=== PATIENT | male | born 1965 | race Caucasian/White ===

== ENCOUNTER 2023-01-21 08:55 | Emergency (ER) | payer OTHER, MEDICAID, SELFPAY ==
[2023-01-21 08:57] VITALS: BP 158/96; PULSE 86; RESP 18; TEMP 36.3; O2SAT 98; BMI 43.9
--- NOTE | 2023-01-21 09:34 | EX.ED.GENINJ ---
HPI History of Present Illness Chief Complaint: Other, Pain/Inj Informant: patient Onset/Context/Timing Onset: Weeks (2) Location of pain/injuries: Right shoulder Quality of Pain: Aching and Stabbing Location: Neck and right shoulder Worsened by: Nothing Relieved by: Elevating right arm Associated Symptoms Associated Symptoms: Positive for Parasthesias; Negative for Weakness, Loss of function, Inability to ambulate, Loss of consciousness or Amnesia Narrative Narrative: Patient presents with neck and right shoulder pain that has been getting worse over the past 2 weeks. Patient states it came on gradually. Patient describes as aching and stabbing. Patient states it is over the lower cervical paraspinal area and radiates into the right shoulder. Patient states it is better when he is able to abduct and elevate his right arm. Patient admits to some slight decrease in sensation in his right arm but denies any weakness. Patient denies any trauma or injury. [facility] Medical History (Updated 01/21/23 @ 11:[address] Bart Crawford DO) Contact with or exposure to other viral diseases COVID-19 URI (upper respiratory infection) Home Medications dexamethasone 6 mg tablet 6 mg PO DAILY #5 tabs 12/11/22 [Rx Last Taken Unknown] cyclobenzaprine 10 mg tablet 10 mg PO QHS PRN PRN Muscle Spasm #10 TABLETS 01/21/23 [Rx Last Taken Unknown] hydrocodone-acetaminophen 5-325mg 5mg-325mg 1 tab PO Q6H PRN PRN Pain 3 days #10 TABLETS 01/21/23 [Rx Last Taken Unknown] Allergy/AdvReac Type Severity Reaction Status Date / Time cephalexin [From Keflex] Allergy Intermediate sob Verified 01/21/23 08:57 Surgical History (Updated 01/21/23 @ 09:[address] Bart Crawford DO) History of colon resection Hx of arthroscopy of knee Hx of tonsillectomy Social History (Updated 01/21/23 @ 09:[address] Bart Crawford DO) alcohol intake: current alcohol intake frequency: holidays/special occasions only ROS ROS ED Constitutional Constitutional ED: Denies chills or fever(s) Eyes Eyes: Denies blurry vision or change in vision ENT ENT ED: Denies rhinorrhea or sore throat Cardiovascular Cardiovascular: Denies chest pain or palpitations Respiratory/Chest Respiratory/Chest: Denies cough or dyspnea Gastrointestinal Gastrointestinal: Denies nausea or vomiting Genitourinary Genitourinary ED: Denies dysuria or hematuria Musculoskeletal Musculoskeletal: Reports neck pain; Denies back pain Integumentary Denies abscess or rash Neurologic Neurologic: Denies headache(s) or weakness Allergic/Immunologic Allergic/Immunologic ED: Denies mouth swelling or urticaria EXAM Physical Exam Const Vital Signs: 01/21/23 08:57 Temperature 97.3 F L Temperature Source Temporal Pulse Rate 86 Respiratory Rate 18 Blood Pressure 158/96 H Blood Pressure Mean 116 Pulse Ox 98 Oxygen Delivery Method Room Air Positive well nourished, well developed and obese General Appearance ED: well developed and NAD Nutritional Appearance: obese HEENT atraumatic Neck Neck Narrative: There is tenderness over the lower right cervical paraspinal muscles. There is some mild midline tenderness over the lower cervical spine. There is no bony crepitance or step-off. There is no edema or ecchymosis. Range of motion was limited in all motions of the cervical spine secondary to pain. Strength is 5/5 bilaterally in the upper extremities. There are no sensory deficits noted. Radial pulses are equal bilaterally. Resp normal respiratory effort and clear to auscultation bilaterally Cardio regular rhythm Rate: regular rate GI non-tender and non-distended Palpation: soft Extremity normal to inspection and full ROM Neuro oriented x3, CN's II-XII intact bilaterally, moves all extremities, no focal motor deficits and no sensory deficits noted Josefa Coma Scale: document GCS findings Spontaneous Obeys Commands Oriented 15 Sensorium / Orientation: alert Motor Exam: strength 5/5 throughout Psych mental status grossly normal MDM MDM MDM Narrative Medical decision making narrative: Differential diagnose includes cervical strain, cervical radiculopathy, and spondylolisthesis. CT scan of the cervical spine will be obtained to assess for spondylolisthesis and spinal stenosis. Radiography Diagnostic Testing: Clinical Impression(s) from Imaging Studies Cervical Spine CT 01/21/23 09:59 IMPRESSION: 1. No evidence of acute cervical spinal fracture or spondylolisthesis or 2. Straightening of the cervical spine which could be due to muscle spasm. 3. Degenerative changes particularly at the level of C3-C4.. Electronically Signed: Damian Quinones MD at 10:55 EST , CT scan of the cervical spine was obtained. There is no acute fracture or spondylolisthesis. There is straightening of the cervical spine. There are some degenerative changes especially at the level of C3-C4. This was interpreted by the radiologist and was also independently reviewed by myself. Treatment and Re-Evaluation Narrative: Patient was advised of his findings. Patient was given prescription for a short course of [place]. Patient was also given a prescription for a short course of Flexeril. Patient was instructed to use ice to the area. Patient was instructed to follow-up with his primary care physician. Patient was advised that he may need further testing for cervical radiculopathy as an outpatient. Patient understood and was agreeable with this plan. All questions were answered. Discharge Plan Triage Chief Complaint: Other, Pain/Inj ED Provider: Bart Crawford Dx/Rx/DC Orders Clinical Impression: Acute cervical myofascial strain Instructions: ED Neck Sprain or Strain Prescriptions: New cyclobenzaprine [cyclobenzaprine] 10 mg tablet 10 mg PO QHS PRN PRN (Reason: Muscle Spasm) Qty: 10 0RF hydrocodone-acetaminophen [hydrocodone-acetaminophen] 5-325 mg tablet 1 tab PO Q6H PRN PRN (Reason: Pain) 3 Days Qty: 10 0RF No Action dexamethasone 6 mg tablet 6 mg PO DAILY Qty: 5 0RF Primary Care Provider: Lb Mcleod Referrals: Lb Mcleod MD [Primary Care Provider] - 5-7 Days NOT,DEFINED [Non-Staff] - Disposition Disposition: Home, Self Care
--- NOTE | 2023-01-21 09:59 | CT_ITS ---
INDICATION: Injury/Pain EXAMINATION: CT CERVICAL SPINE - CT Spine Cervical W/O Contrast Injection TECHNIQUE: Helically acquired images were obtained of the cervical spine. 2D reformatted images were reviewed. A radiation dose optimization technique was used for this scan. IV Contrast dosage and agent: None. RADIATION DOSAGE (If Supplied By Facility): CTDIvol = ( 39.41 ) mGy, DLP = ( 1006.44 ) mGycm COMPARISON: No relevant prior comparison study available FINDINGS: VERTEBRAE: No fracture or traumatic subluxation. No discrete lytic or blastic abnormality. Straightening of the cervical spine. Normal craniocervical junction and cervicothoracic junction. DISCS and SPINAL CANAL: Narrowing of C3-C4 disc space. Posterior degenerative spur slightly more to the left side with narrowing of the central neural foramina. Otherwise no critical stenosis is seen. Endplate spondylosis at multiple levels. NECK SOFT TISSUES: No prevertebral soft tissue swelling. There is no cervical adenopathy. LUNG APICES: Clear. CT/Spine Cervical without Contras IMPRESSION: 1. No evidence of acute cervical spinal fracture or spondylolisthesis or 2. Straightening of the cervical spine which could be due to muscle spasm. 3. Degenerative changes particularly at the level of C3-C4.. Electronically Signed: Damian Quinones MD at 10:55 [facility] ,
[2023-01-21 11:14] VITALS: BP 139/82; PULSE 91; RESP 16; O2SAT 98
== END 2023-01-21 11:15 | disposition home or self-care (01) ==
PROVIDERS: Emergency Provider Emergency Medicine; PCP Family Medicine; Visit Provider Emergency Medicine
DX: S16.1XXA Strain of muscle, fascia and tendon at neck level, initial encounter (principal); M25.511 Pain in right shoulder
CPT/HCPCS: 72125; 99282

== ENCOUNTER → 2023-02-20 | Outpatient (CLI) | payer OTHER, MEDICAID, SELFPAY ==
[2023-02-20 17:46] LABS: Absolute Lymphocyte Count 3.24 X10^3/uL (0.83-4.51); Absolute Neutrophil Count 5.7 X10^3/uL (2.0-7.7); Basophil# 0.04 X10^3/uL; Basophil% 0.4 % (0-1); Eosinophils% 2.9 % (0-5); Hematocrit 43.7 % (40-54); Hemoglobin 14.7 g/dL (13.0-16.5); Lymphocyte # 3.24 X10^3/ul (0.83-4.51); Lymphocyte % 31.5 % (19-41); Mean Corp Hgb Conc 33.6 g/dL (32-36); Mean Corpuscular Hgb 28.8 pg (27.0-32.0); Mean Corpuscular Volume 85.5 fL (80-94); Mean Platelet Vol. 9.4 fl (6.2-12.0); Monocyte# 1.04 X10^3/uL; Monocyte% 10.1 % (0-10); NRBC Flagged by Analyzer 0 % (0-5); Neutrophil # 5.65 X10^3/uL (2.7-7.7); Neutrophil % 54.9 % (47-70); Platelet Count 324 K/mm3 (150-450); RBC Distribution Width CV 12.4 % (11.6-14.6); RBC Distribution Width SD 38.7 fl (35.1-43.9); Red Blood Count 5.11 M/mm3 (4.6-6.2); White Blood Count 10.3 K/mm3 (4.4-11.0)
[2023-02-20 18:22] LABS: AST(SGOT) 17 U/L (15-37); Alanine Aminotransfer ALT/SGPT 32 U/L (16-61); Albumin, Serum 3.6 g/dL (3.2-5.0); Alkaline Phosphatase 72 U/L (45-117); Anion Gap 3 (5-15); BUN 14 mg/dL (7-18); BUN/Creat Ratio 19.1 RATIO (10-20); Calcium,Total 9.6 mg/dL (8.5-10.1); Chloride 106 mmol/L (98-107); Cholesterol 190 mg/dL (200); Creatinine, Serum 0.73 mg/dL (0.70-1.30); EST Glomerular Filtration Rate 118 mL/min (>60); Est Glom Filt Rate - Afr Amer 143 mL/min (>60); Globulin 3.7 g/dL (2.2-4.2); Glucose 124 mg/dL (74-106); High Density Lipoprotein 36 mg/dL; Magnesium 2.1 mg/dL (1.6-2.6); Potassium 3.7 mmol/L (3.5-5.1); Protein, Total 7.3 g/dL (6.4-8.2); Sodium Level 138 mmol/L (136-145); Thyroid Stim Hormone (TSH) 1.55 uIU/mL (0.358-3.74); Triglycerides 251 mg/dL; Very Low Density Lipoprotein 50 mg/dL (5-40)
[2023-02-21 12:49] LABS: Hemoglobin A1c 5.6 % (3.8-5.6)
== END | disposition home or self-care (01) ==
LOC: MFPLAB 16:50
PROVIDERS: PCP Family Medicine; Visit Provider Family Medicine
DX: R03.0 Elevated blood-pressure reading, without diagnosis of hypertension (principal)
CPT/HCPCS: 36415; 80053; 80061; 83036; 83735; 84443; 85025

== ENCOUNTER 2023-02-27 20:29 | Emergency (ER) | payer OTHER, MEDICAID, SELFPAY ==
[2023-02-27 20:30] VITALS: BP 149/106; PULSE 108; RESP 17; TEMP 36.4; O2SAT 99; BMI 46.5
--- NOTE | 2023-02-27 22:41 | EX.ED.VIS.EY ---
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 He has watering. Notes significant vision changes but he is not currently wearing his glasses. Does not wear contacts. He states he was using eye protection but states he had been wearing it such that his eyes probably got exposed to the welding flash at times. The left eye was worse than the right but now they are both significant. PFSH PFS Medical History Contact with or exposure to other viral diseases COVID-19 URI (upper respiratory infection) Home Medications dexamethasone 6 mg tablet 6 mg PO DAILY #5 tabs 12/11/22 [Rx Last Taken Unknown] cyclobenzaprine 10 mg tablet 10 mg PO QHS PRN PRN Muscle Spasm #10 TABLETS 01/21/23 [Rx Last Taken Unknown] hydrocodone-acetaminophen 5-325mg 5mg-325mg 1 tab PO Q6H PRN PRN Pain 3 days #10 TABLETS 01/21/23 [Rx Last Taken Unknown] Allergy/AdvReac Type Severity Reaction Status Date / Time cephalexin [From Keflex] Allergy Intermediate sob Verified 01/21/23 08:57 acetaminophen [From Percocet] Allergy Mild Hives Verified 02/27/23 20:30 oxycodone [From Percocet] Allergy Mild Hives Verified 02/27/23 20:30 Surgical History History of colon resection Hx of arthroscopy of knee Hx of tonsillectomy Social History Smoking Status: Current every day smoker tobacco type: cigarettes alcohol intake: current alcohol intake frequency: holidays/special occasions only ROS ROS ED Constitutional Constitutional ED: Denies chills or fever(s) Eyes Eyes: Reports as per HPI and eye pain ENT ENT ED: Denies ear pain, rhinorrhea or sore throat Neurologic Neurologic: Denies headache(s), paresthesias or weakness EXAM Physical Exam Const Vital Signs: 02/27/23 20:30 Temperature 97.6 F L Temperature Source Temporal Pulse Rate 108 H Respiratory Rate 17 Blood Pressure 149/106 H Blood Pressure Mean 120 Pulse Ox 99 Oxygen Delivery Method Room Air Positive well nourished and well developed General Appearance ED: well developed and NAD HEENT atraumatic; Negative for tenderness Mouth ED: Yes oral and palatal mucosa normal and Yes lips normal Mouth: oral and palatal mucosa normal and lips normal Eyes PERRL and EOMs intact bilaterally Eyes Narrative: Lateral mild bulbar conjunctival injection. No chemosis or palpebral involvement. Watering but no discharge or bleeding. Corneas grossly look unremarkable. No slit-lamp exam was performed. Neuro oriented x3, CN's II-XII intact bilaterally and gait normal Sensorium / Orientation: alert Skin Lesions: no lesions Rashes: no rashes MDM MDM MDM Narrative Medical decision making narrative: We will give visual acuities and give him some tetracaine for pain tonight as well as antibiotic ointment to use at home to help soothe his eyes, not for the antibiotic effect. I skipped the slit-lamp exam tonight because he has only had the symptoms for couple of hours and vision is basically unchanged when he is wearing his glasses, and he does not wear contacts to put him at risk for an ulcer. Advise either returning or following up with ophthalmology if it does not improve within 3 days. He is comfortable with that plan. Discharge Plan Triage Chief Complaint: Eye Problem ED Provider: David Reeves Dx/Rx/DC Orders Clinical Impression: UV keratitis Instructions: ED Flash Burn to Eye Prescriptions: No Action dexamethasone 6 mg tablet 6 mg PO DAILY Qty: 5 0RF cyclobenzaprine [cyclobenzaprine] 10 mg tablet 10 mg PO QHS PRN PRN (Reason: Muscle Spasm) Qty: 10 0RF hydrocodone-acetaminophen 5-325 mg tablet 1 tab PO Q6H PRN PRN (Reason: Pain) 3 Days Qty: 10 0RF Primary Care Provider: Lb Mcleod Referrals: Lb Mcleod MD [Primary Care Provider] - Tamara Castro MD [Med Staff - Active Staff] - 3-5 Days if not improving Activity Restrictions/Additional Instructions: Can place thin ribbon of antibiotic ointment to affected eye(s) as needed 3 times per day for discomfort Disposition Disposition: Home, Self Care
[2023-02-27] MEDS: Erythromycin Base 1 OPTH.TUBE 1 APPLIC EACH EYE (22:53)
[2023-02-27] MEDS: Tetracaine 0.5% Ophthalmic Bottle 2 DRP EACH EYE (22:53)
--- OUTSIDE RECORDS SUMMARY | 2023-02-27 22:53 | XMS RPT_ITS | CCD ---
Author Name Unknown Address [address] [place] [address] Organization [facility] Care Team Providers Care Ic Designer [employer] Name Role Phone Unavailable Primary Care Provider DR KERRI Martinez DO Primary Care Physician Unavailable Primary Care Provider Andre Martinez MD Primary Care Provider ANDRE HINOJOSA Primary Care Unavailable Allergies Allergy Classification Reported Allergen(s) Allergy Type Date of Onset Reaction(s) Facility (2 sources) Acetaminophen / oxyCODONE; Translations: [acetaminophen-oxy codone] Drug Allergy 3 [facility] (2 sources) Cephalexin; Translations: [cephalexin] Drug Allergy 3 Eruption of skin (disorder), Other: See [facility] (1 source) oxyCODONE; Translations: [oxycodone] Drug Allergy [facility] Medications Current Medications Medication Drug Class(es) Dates Sig (Normalized) Sig (Original) amoxicillin 875 mg / clavulanate 125 mg oral tablet (1 source) Penicillin-class Antibacterial Start: 04-06-2022 End: 04-13-2022 take 1 tablet by mouth twice daily amoxicillin-clav ulanic acid (AUGMENTIN) 875-125 mg per tablet Indications: Bacterial sinusitis Take 1 tablet by mouth twice daily for 7 days. 14 tablet 0 04/06/2022 04/13/2022 Active Completed/Discontinued Medications Medication Drug Class(es) Dates Sig (Normalized) Sig (Original) cetirizine hydrochloride 10 mg oral tablet (1 source) Histamine-1 Receptor Antagonist Start: 09-24-2018 cetirizine (ZYRTEC) 10 mg tablet Take by mouth. 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 Episodic Intestinal obstruction without hernia (1 source) Small bowel obstruction 05-03-2021 Episodic Other connective tissue disease (1 source) Muscle pain; Translations: [Myalgia, other site] Onset: 08-20-2021 Episodic Other upper respiratory infections (1 source) Bacterial sinusitis; Translations: [Chronic sinusitis, unspecified] Chronic Spondylosis; intervertebral disc disorders; other back problems (1 source) Sciatica; Translations: [Sciatica, unspecified side] Onset: 08-20-2021 Episodic Results Test Name Value Interpretation Reference Range Facil ity Vital Signs Date Time Vital Sign Value Performing Clinician Facility 04-06-2022 07:36-0500 Body temperature 98.29 [degF] Sedrick Michel APRN.SENIOR QA AUTOMATION ENGINEER Work Phone: [facility] 04-06-2022 07:36-0500 Body weight 144.7 kg Sedrick Michel APRN.SENIOR QA AUTOMATION ENGINEER Work Phone: [facility] 04-06-2022 07:36-0500 Diastolic blood pressure 84 mm[Hg] Sedrick Michel APRN.SENIOR QA AUTOMATION ENGINEER Work Phone: [facility] 04-06-2022 07:36-0500 Heart rate 80 /min Sedrick Michel APRN.SENIOR QA AUTOMATION ENGINEER Work Phone: [facility] 04-06-2022 07:36-0500 Respiratory rate 18 /min Sedrick Michel APRN.SENIOR QA AUTOMATION ENGINEER Work Phone: [facility] 04-06-2022 07:36-0500 SaO2% (BldA) [Mass fraction] 98 % Sedrick Michel APRN.SENIOR QA AUTOMATION ENGINEER Work Phone: [facility] 04-06-2022 07:36-0500 Systolic blood pressure 146 mm[Hg] Sedrick Micehl APRN.SENIOR QA AUTOMATION ENGINEER Work Phone: [facility] 08-20-2021 04:05-0400 Body temperature 97.34 [degF] AUSTIN REICHFIELD DO [facility] 08-20-2021 04:05-0400 Diastolic blood pressure 94 mm[Hg] AUSTIN REICHFIELD DO [facility] 08-20-2021 04:05-0400 Heart rate 72 /min [facility] 08-20-2021 04:05-0400 Respiratory rate 18 /min [facility] 08-20-2021 04:05-0400 Systolic blood pressure 155 mm[Hg] AUSTIN REICHFIELD DO [facility] Encounters Encounter Date Encounter Type Care Provider Facility Start: 04-06-2022 End: 04-06-2022 ambulatory ANDRE HINOJOSA Facility:[facility] Start: 04-06-2022 End: 04-06-2022 Patient encounter procedure Sedrick Michel ALEXANDRU.SENIOR QA AUTOMATION ENGINEER Work Phone: [facility] Procedures Date Procedure Procedure Detail Performing Clinician Start: 05-23-2021 Antibody screen Plan of Treatment Date Care Activity Detail Author Start: 12-25-2025 LIPID SCREEN LIPID SCREEN [facility] Start: 05-25-2024 DIABETES SCREEN DIABETES SCREEN [facility] Start: 02-19-2022 DEPRESSION ASSESSMENT DEPRESSION ASS ESSMENT [facility] Start: 10-20-2021 Influenza vaccination INFLUENZA (#1) [facility] Start: 01-14-2021 COVID-19 VACCINE (3 - Booster for Pfizer series) COVID-19 VACCINE (3 - Booster for Pfizer series) [facility] Start: 12-06-2017 SHINGRIX VACCINE (1 of 2) SHINGRIX V ACCINE (1 of 2) [facility] Start: 12-06-2012 COLOGUARD (FIT-DNA) COLOGUARD (FIT-D NA) [facility] Start: 12-06-2012 Colonoscopy COLONOSCOPY [facility] Start: 12-06-2012 COLORECTAL CANCER SCREENING COLORECTAL CANCER SCREENING [facility] Start: 12-06-[address] COLONOGRAPHY [facility] Start: 12-06-2012 FECAL OCCULT BLOOD FECAL OCCULT BLOO D [facility] Start: 12-06-2012 SIGMOIDOSCOPY SIGMOIDOSCOPY [facility] Start: 12-06-1986 Urine microalbumin profile DTAP,TDAP ,TD (1 - Tdap) [facility] Start: 12-06-1985 HEPATITIS C SCREENING HEPATITIS C SC REENING [facility] Start: 12-06-1985 HIV SCREENING HIV SCREENING [facility] Start: [birth year]-06-1968 COVID-19 VACCINE (#1) COVID-19 VACCI NE (#1) [facility] Start: 1965 HEPATITIS B (1 of 3 - 3-dose series) HEPATITIS B (1 of 3 - 3-dose series) [facility] Immunizations Immunization Date Immunization Notes Care Provider Karin stubbs 05-22-2020 tetanus toxoid, redu saad diphtheria toxoid, and acellular pertussis vaccine, adsorbed [facility] 01-13-2019 tetanus toxoid, redu saad diphtheria toxoid, and acellular pertussis vaccine, adsorbed [facility] Payers Date Payer Category Payer Medicaid [id number] 2022 Medicaid [id number] 2022 Unknown MMO MMO [employer] [id number] 2022-Present [phone] [address] [place] [address] PPO [id number] 2022 Unknown [id number] Social History Date Type Detail Facility [facility] Start: 1965 Sex Assigned At Not on file [facility] Start: 07-15-2018 Tobacco smoking status Ex-smoker (fi nding) [facility] Functional Status Date Assessment Result Facility 08-20-2021 Functional Status Assistive Device None [facility] Mental Status Date Assessment Result Facility 08-20-2021 [facility] Status [facility] x [facility] Progress note 04-06-2022 Note Date & Type Note Facility 04-06-2022 Note HNO ID: [id number] Author: Sedrick Michel APRN.SENIOR QA AUTOMATION ENGINEER Service: ? Author Type: Nurse Practitioner Type: Progress Notes Filed: 04/06/2022 7:57 AM Note Text: Subjective HPI HPI Shahab Joya is a 56 year old male who presents today for CC of sinus pressure. This started over 1 week ago/worsening. Has tried otc medication for relief. Symptoms are worsened by nothing. Risk factors hx of chronic nasal allergies. nonsmoker. .Patient presents with: Sinus Problem: Congestion, MOTTA x 1 week No past medical history on file. No past surgical history on file. ALLERGIES Keflex [Cephalexin] and Percocet [Oxycodone-Acetaminophen] MEDICATIONS propranolol (INDERAL) 20 mg tablet propranolol 20 mg tablet take 1 tablet by mouth twice a day NURTEC ODT 75 mg disintegrating tablet DISSOLVE 1 TABLET ON THE TONGUE AT ONSET OF MIGRAINE. NO MORE THAN 1 IN 24 HOURS fluticasone (FLONASE) 50 mcg/actuation nasal spray Apply to affected area. cetirizine (ZYRTEC) 10 mg tablet Take by mouth. propranolol (INDERAL) 10 mg tablet Take by mouth. (Patient not taking: Reported on 04/06/2022) No family history on file. Social History Tobacco Use Smoking status: Never Passive exposure: Never Smokeless tobacco: Never Review of Systems Constitutional: Negative for fever. HENT: Positive for congestion and sinus pain. Negative for ear pain, nosebleeds and sore throat. Respiratory: Positive for cough. Negative for shortness of breath and wheezing. Cardiovascular: Negative for chest pain. Musculoskeletal: Negative for neck pain. Neurological: Positive for headaches. Objective Blood pressure 146/84, pulse 80, temperature 36.8 ?C (98.3 ?F), resp. rate 18, weight (!) 144.7 kg (319 lb), SpO2 98 %. Component Latest Ref Rng AND Units 05/25/2021 Sodium 136 - 145 MMOL/L 142 Potassium 3.5 - 5.1 MMOL/L 4.0 Chloride 98 - 107 MMOL/L 110 (H) CO2 21 - 32 MMOL/L 25.0 Anion Gap 5 - 16 MMOL/L 7 Glucose 70 - 100 MG/DL 108 (H) BUN 7 - 26 MG/DL 10 Creatinine 0.5 - 1.4 MG/DL 0.73 BUN/CREATININE RATIO 15 - 24 14 (L) Calcium 8.5 - 10.5 MG/DL 9.0 Physical Exam Constitutional: General: He is not in acute distress. Appearance: He is not toxic-appearing or diaphoretic. HENT: Head: Normocephalic and atraumatic. Nose: Right Sinus: Maxillary sinus tenderness and frontal sinus tenderness present. Left Sinus: Maxillary sinus tenderness and frontal sinus tenderness present. Cardiovascular: Rate and Rhythm: Normal rate and regular rhythm. Heart sounds: Normal heart sounds, S1 normal and S2 normal. Pulmonary: Effort: Pulmonary effort is normal. Breath sounds: Normal breath sounds. Lymphadenopathy: Cervical: No cervical adenopathy. Right cervical: No superficial cervical adenopathy. Left cervical: No superficial cervical adenopathy. Neurological: Mental Status: He is alert and oriented to person, place, and time. Gait: Gait is intact. ASSESSMENT/PLAN: 1. Bacterial sinusitis - ICD9: 473.9, 041.9, ICD10: J32.9, B96.89 - Will begin treatment with as per antibiotic as written, see orders - Supportive care with plenty of fluids, rest, and analgesia prn. - Follow up in 3-5 days if symptoms persist or worsen. - AMOXICILLIN 875 MG-POTASSIUM CLAVULANATE 125 MG TABLET Sedrick Michel APRN.[facility] History of Present illness Narrative 04-06-2022 Sedrick Michel APRN.RUDDY - 04/06/2022 7:41 AM EST Note Date & Type Note Facility 04-06-2022 History of Presen t illness Narrative Subjective HPI HPI Shahab Joya is a 56 year old male who presents today for CC of sinus pressure. This started over 1 week ago/worsening. Has tried otc medication for relief. Symptoms are worsened by nothing. Risk factors hx of chronic nasal allergies. nonsmoker. .Patient presents with: Sinus Problem: Congestion, MOTTA x 1 week No past medical history on file. No past surgical history on file. ALLERGIES Keflex [Cephalexin] and Percocet [Oxycodone-Acetaminophen] MEDICATIONS propranolol (INDERAL) 20 mg tablet propranolol 20 mg tablet take 1 tablet by mouth twice a day NURTEC ODT 75 mg disintegrating tablet DISSOLVE 1 TABLET ON THE TONGUE AT ONSET OF MIGRAINE. NO MORE THAN 1 IN 24 HOURS fluticasone (FLONASE) 50 mcg/actuation nasal spray Apply to affected area. cetirizine (ZYRTEC) 10 mg tablet Take by mouth. propranolol (INDERAL) 10 mg tablet Take by mouth. (Patient not taking: Reported on 04/06/2022) No family history on file. Social History Tobacco Use Smoking status: Never Passive exposure: Never Smokeless tobacco: Never Review of Systems Constitutional: Negative for fever. HENT: Positive for congestion and sinus pain. Negative for ear pain, nosebleeds and sore throat. Respiratory: Positive for cough. Negative for shortness of breath and wheezing. Cardiovascular: Negative for chest pain. Musculoskeletal: Negative for neck pain. Neurological: Positive for headaches. Objective Blood pressure 146/84, pulse 80, temperature 36.8 C (98.3 F), resp. rate 18, weight (!) 144.7 kg (319 lb), SpO2 98 %. Component Latest Ref Rng & Units 05/25/2021 Sodium 136 - 145 MMOL/L 142 Potassium 3.5 - 5.1 MMOL/L 4.0 Chloride 98 - 107 MMOL/L 110 (H) CO2 21 - 32 MMOL/L 25.0 Anion Gap 5 - 16 MMOL/L 7 Glucose 70 - 100 MG/DL 108 (H) BUN 7 - 26 MG/DL 10 Creatinine 0.5 - 1.4 MG/DL 0.73 BUN/CREATININE RATIO 15 - 24 14 (L) Calcium 8.5 - 10.5 MG/DL 9.0 Physical Exam Constitutional: General: He is not in acute distress. Appearance: He is not toxic-appearing or diaphoretic. HENT: Head: Normocephalic and atraumatic. Nose: Right Sinus: Maxillary sinus tenderness and frontal sinus tenderness present. Left Sinus: Maxillary sinus tenderness and frontal sinus tenderness present. Cardiovascular: Rate and Rhythm: Normal rate and regular rhythm. Heart sounds: Normal heart sounds, S1 normal and S2 normal. Pulmonary: Effort: Pulmonary effort is normal. Breath sounds: Normal breath sounds. Lymphadenopathy: Cervical: No cervical adenopathy. Right cervical: No superficial cervical adenopathy. Left cervical: No superficial cervical adenopathy. Neurological: Mental Status: He is alert and oriented to person, place, and time. Gait: Gait is intact. ASSESSMENT/PLAN: 1. Bacterial sinusitis - ICD9: 473.9, 041.9, ICD10: J32.9, B96.89 - Will begin treatment with as per antibiotic as written, see orders - Supportive care with plenty of fluids, rest, and analgesia prn. - Follow up in 3-5 days if symptoms persist or worsen. - AMOXICILLIN 875 MG-POTASSIUM CLAVULANATE 125 MG TABLET Sedrick Michel APRN.SENIOR QA AUTOMATION ENGINEER documented in this encounter [facility] Discharge instructions 08-20-2021 Note Date & Type Note Facility 08-20-2021 Hospital Discharg e instructions Patient Education 08/20/2021 04:16:40 Sciatica Sciatica Sciatica is a condition that causes pain in the lower back that spreads down into the buttock, hip, and leg. Sometimes the leg pain can happen without any back pain. Sciatica happens when a spinal nerve is irritated or has pressure put on it as comes out of the spinal canal in the lower back. This most often happens when a bulge or rupture of a nearby spinal disk presses on the nerve. Sciatica can also be caused by a narrowing of the spinal canal (spinal stenosis) or spasm of the muscle in the buttocks that the sciatic nerve passes through (pyriform muscle). Sciatica is also called lumbar radiculopathy. Sciatica may begin after a sudden twisting or bending force, such as in a car accident. Or it can happen after a simple awkward movement. In either case, muscle spasm often also happens. Muscle spasm makes the pain worse. A healthcare provider makes a diagnosis of sciatica from your symptoms and a physical exam. Unless you had an injury from a car accident or fall, you usually won t have X-rays taken at this time. This is because the nerves and disks in your back can t be seen on an X-ray. If the provider sees signs of a compressed nerve, you will need to schedule an MRI scan as an outpatient. Signs of a compressed nerve include loss of strength in a leg. Most sciatica gets better with medicine, exercise, and physical therapy. If your symptoms continue after at least 3 months of medical treatment, you may need surgery or injections to your lower back. Home care Follow these tips when caring for yourself at home: You may need to stay in bed the first few days. But as soon as possible, begin sitting up or walking. This will help you avoid problems that come from staying in bed for long periods. When in bed, try to find a position that is comfortable. A firm mattress is best. Try lying flat on your back with pillows under your knees. You can also try lying on your side with your knees bent up toward your chest and a pillow between your knees. Avoid sitting for long periods. This puts more stress on your lower back than standing or walking. Use heat from a hot shower, hot bath, or heating pad to help ease pain. Massage can also help. You can also try using an ice pack. You can make your own ice pack by putting ice cubes in a plastic bag. Wrap the bag in a thin towel. Try both heat and cold to see which works best. Use the method that feels best for 20 minutes several times a day. You may use acetaminophen or ibuprofen to ease pain, unless another pain medicine was prescribed. Note: If you have chronic liver or kidney disease, talk with your healthcare provider before taking these medicines. Also talk with your provider if you ve had a stomach ulcer or gastrointestinal bleeding. Use safe lifting methods. Don t lift anything heavier than 15 pounds until all of the pain is gone. Follow-up care Follow up with your healthcare provider, or as advised. You may need physical therapy or additional tests. If X-rays were taken, a radiologist will look at them. You will be told of any new findings that may affect your care. When to seek medical advice Call your healthcare provider right away if any of these occur: Pain gets worse even after taking prescribed medicine Weakness or numbness in 1 or both legs or hips Numbness in your groin or genital area You can t control your bowel or bladder Fever Redness or swelling over your back or spine [phone] [employer]. [address] [place] [address], [place] [address]. All rights reserved. This information is not intended as a substitute for professional medical care. Always follow your healthcare professional's instructions. Follow Up Care 08/20/2021 03:57:23 With:Go to emergency room if symptoms worsen Address:Unknown When:2-4 days With:KERRI HINOJOSA DO Address: [address] [address] [phone] When:2-4 days [facility] Clinical Note 08-20-2021 Note Date & Type Note Facility 08-20-2021 Note Discharge Instructions Thank you for allowing [facility] to assist you with your healthcare needs. The following is important discharge information regarding your hospital visit. Diagnosis from Today's Visit Sciatica Piriformis syndrome Hip pain-swelling What to Do Next Instructions from Your Care Team No qualifying data available. Post Acute Orders No qualifying data available. You Need to Schedule the Following Appointments Follow Up with Go to emergency room if symptoms worsen When Within 2-4 days Follow Up with KERRI HINOJOSA DO When Within 2-4 days Where: [address] [id number] [phone] Allergies Keflex (Rash) Percocet oxyCODONE Medications Please ask your primary doctor or pharmacist before taking any other medication not listed, including over the counter drugs, herbal medications, vitamins and or supplements as they may interact with your home medications. What How Much When Why Instructions Last Dose New cyclobenzaprine (cyclobenzaprine 10 mg oral tablet) 1 tab(s) by mouth Three (3) times a day Sciatica Piriformis syndrome Duration: 7 Days Printed Prescription Unchanged fluticasone nasal (Flonase 50 mcg/ inh nasal spray) Unchanged multivitamin (Daily Multiple Vitamins) Unchanged pantoprazole (Protonix 40 mg oral enteric coated tablet) 2 tab(s) by mouth Once a day Duration: 7 Days Unchanged propranolol (propranolol 20 mg oral tablet) 1 tab(s) by mouth Two (2) times a day Unchanged sertraline (sertraline 100 mg oral tablet) 1 tab(s) by mouth Every day Please take this list to your next doctor s visit. Bring all medications you take, including over the counter medications, herbals and other supplements with you to your doctor s visit. Patients and families are reminded to discard old lists and to update any records with all medication providers or retail pharmacies. Education Materials Sciatica Sciatica is a condition that causes pain in the lower back that spreads down into the buttock, hip, and leg. Sometimes the leg pain can happen without any back pain. Sciatica happens when a spinal nerve is irritated or has pressure put on it as comes out of the spinal canal in the lower back. This most often happens when a bulge or rupture of a nearby spinal disk presses on the nerve. Sciatica can also be caused by a narrowing of the spinal canal (spinal stenosis) or spasm of the muscle in the buttocks that the sciatic nerve passes through (pyriform muscle). Sciatica is also called lumbar radiculopathy. Sciatica may begin after a sudden twisting or bending force, such as in a car accident. Or it can happen after a simple awkward movement. In either case, muscle spasm often also happens. Muscle spasm makes the pain worse. A healthcare provider makes a diagnosis of sciatica from your symptoms and a physical exam. Unless you had an injury from a car accident or fall, you usually won t have X-rays taken at this time. This is because the nerves and disks in your back can t be seen on an X-ray. If the provider sees signs of a compressed nerve, you will need to schedule an MRI scan as an outpatient. Signs of a compressed nerve include loss of strength in a leg. Most sciatica gets better with medicine, exercise, and physical therapy. If your symptoms continue after at least 3 months of medical treatment, you may need surgery or injections to your lower back. Home care Follow these tips when caring for yourself at home: You may need to stay in bed the first few days. But as soon as possible, begin sitting up or walking. This will help you avoid problems that come from staying in bed for long periods. When in bed, try to find a position that is comfortable. A firm mattress is best. Try lying flat on your back with pillows under your knees. You can also try lying on your side with your knees bent up toward your chest and a pillow between your knees. Avoid sitting for long periods. This puts more stress on your lower back than standing or walking. Use heat from a hot shower, hot bath, or heating pad to help ease pain. Massage can also help. You can also try using an ice pack. You can make your own ice pack by putting ice cubes in a plastic bag. Wrap the bag in a thin towel. Try both heat and cold to see which works best. Use the method that feels best for 20 minutes several times a day. You may use acetaminophen or ibuprofen to ease pain, unless another pain medicine was prescribed. Note: If you have chronic liver or kidney disease, talk with your healthcare provider before taking these medicines. Also talk with your provider if you ve had a stomach ulcer or gastrointestinal bleeding. Use safe lifting methods. Don t lift anything heavier than 15 pounds until all of the pain is gone. Follow-up care Follow up with your healthcare provider, or as advised. You may need physical therapy or additional tests. If X-rays were taken, a radiologist will look at them. You will be told of any new findings that may affect your care. When to seek medical advice Call your healthcare provider right away if any of these occur: Pain gets worse even after taking prescribed medicine Weakness or numbness in 1 or both legs or hips Numbness in your groin or genital area You can t control your bowel or bladder Fever Redness or swelling over your back or spine [phone] [employer]. [address] [place] [address]. All rights reserved. This information is not intended as a substitute for professional medical care. Always follow your healthcare professional's instructions. Additional Information VACCINATE! IT SAVES LIVES! Members of the community who have not yet received the COVID-19 vaccine and would like to receive it can visit one of [facility] [facility] vaccine clinics. There are many vaccine clinic locations within the [facility]. For locations and available times, please visit [email or web address]. It is important to note that some COVID mobile vaccine clinics are held outdoors and may be canceled in rainy or stormy conditions. To learn more about pediatric vaccinations (ages 5-11), we invite you to visit the [facility] webpage. [email or web address] -Questions.html To learn more about the COVID-19 vaccine, we invite you to visit the [employer] website for a list of frequently asked questions. [email or web address]/assets/Patients-[email or web address] [email or web address] [email or web address].pdf [facility] [employer] Patient Portal Access Instructions: Stay connected with your healthcare team and access your personal medical information anytime with the [employer] Patient Portal. If you would like a full copy of your medical records please contact the [facility] Medical Records Department Sunday through Sunday between 8a.m. and 4:30p.m. Please follow the directions below to access the portal: 1.Access the email account you provided upon registration to the [facility].2.Look for an invitation email from [facility].3.Open the email and access the invitation link: Accept Invitation to [facility]4.Fill in the required banks to create your account. Sign into www.[employer] with your username and password that you created in the above steps to stay up to date. You can then view a summary of results, a summary of your visits, and the ability to download your summaries to your computer or send the information securely to a physician. Remember that your healthcare information is confidential, so carefully consider who you will allow to register on the [employer] Patient Portal for access to your information. You can also access the [employer] Patient Portal on the [employer] toi. Simply click on Health Records under Health Data and then click on the [employer] logo. HOW TO SAFELY DISPOSE OF PRESCRIPTION MEDICATIONS Please use one of the following methods to safely dispose of your unused medications. 1.Use a drug disposal kit: the drug disposal pouch allows you to safely discard your old and unused drugs. Ask your nurse to give you one when you are discharged.2.Visit a local take-back location: Many local pharmacies and police departments have programs that collect old and unwanted prescription drugs. Call your local pharmacy or go to http://bit.[place]/7P2Mt2o to find one close to you.3.Make use of household items: Use cat litter or old coffee grounds to dispose medications if other options are not available. Mix your drugs with these household products, seal them in an airtight container and throw it into the garbage. Call [facility]: [phone] to be sure your drugs can be disposed of in this way. Some medicines may require a different approach.4.Never flush your medications down the toilet. IF YOU HAVE BEEN PRESCRIBED AN OPIOIDS FOR PAIN If you have been prescribed an opioid (such as hydrocodone, oxycodone or morphine), it is critical to understand the possible side effects and risks of opioid pain medications. Even when taken as directed, opioids can have several side effects including: Tolerance, meaning you might need to take more of a medication for the same pain relief. Nausea, vomiting and/or constipation. Sleepiness, dizziness, dry mouth, confusion, depression or itching. Physical dependence, meaning you have withdrawal symptoms when a medication is stopped ? this can develop within a few days. KNOW YOUR RESPONSIBILITIES It is important to know exactly how much and how often to take the opioid pain medications you are prescribed. Never take opioids in higher amounts or more often than prescribed. Do not combine opioids with alcohol or other drugs that cause drowsiness, such as benzodiazepines, also known as benzos, including diazepam and alprazolam, muscle relaxants or sleep aids. Never sell or share prescription opioids. This is illegal. Store opioids in a secure place and out of reach of others (including children, family, friends and visitors). The last page(s) of this document has been signed and retained as a CHART COPY Signatures Patient Education Materials [employer] Medication Leaflets My discharge plan and instructions have been reviewed and explained to me and I,SHAHAB JOYA understand my current condition and have read and understand these discharge instructions. I have received a written copy of the plan/instructions. If I have questions, I am aware that I should contact my doctor. Patient/[employer] Signature: _ Date/Time: Relationship to Patient: Witness Name/Signature: Date/Time: [facility] Discharge summary note 05-25-2021 Note Date & Type Note Facility 05-25-2021 Note [facility] Medical Ce bryan Parekh History of Present illness Narrative 06-05-2020 Abelardo Sullivan MD - 06/05/2020 10:10 PM EDT Note Date & Type Note Facility 06-05-2020 History of Present illness Narrative DATE OF SERVICE: 06/04/2020 CHIEF COMPLAINT: Left lower neck pain. HISTORY OF PRESENT ILLNESS: The patient is a 54-year-old male who presents today for further evaluation and treatment. He reports that on May 22 he was in his garage, twisted his ankle and fell. Struck his back. He states that he had no pain immediately. The pain actually started a few days after. He started experiencing pain, spasm along the base of the left side of the neck. He went to [facility]. He states that he had a CT scan of the head and the neck and he was told that he had a pinched nerve. He was placed on a muscle relaxant as well as prednisone with minimal improvement. Patient continues to have discomfort, pointing really over the left scapular region, over the trapezius of the left shoulder. He states that it is worse when he moves his neck. It is worse when he tries to do overhead movement on the left shoulder. He works as a socket welder helper and currently being provided with work restrictions by his employer. He states that he has no scheduled followup appointment with his primary care provider. He is not on any blood thinners. He denies headaches and dizziness. Denies vision changes. Denies difficulty with swallowing. Denies chest pain and shortness of breath. Denies paresthesias of the upper extremities. ALLERGIES: KEFLEX AND PERCOCET. PAST MEDICAL HISTORY: Asthma. SOCIAL HISTORY, FAMILY HISTORY, PAST SURGICAL HISTORY: Reviewed. PHYSICAL EXAMINATION: Blood pressure is 134/97, pulse is 104, temperature is 97.4, his respirations are 16, pulse oximetry is 97%. He rates his pain level as 5 out of 10. The patient is alert, oriented. He is in no acute distress. Pupils equal, reactive. Anterior neck is normal on examination. Normal phonation. He has no C-spine tenderness. There is discomfort and spasm over the superior border of the left scapula as well as the left trapezial area. He is able to move his left shoulder to about 100 degrees of abduction before having pain. Lungs are clear to auscultation. Regular rate and rhythm. Abdomen: Soft, nontender. No midline tenderness of the rest of the spine. Motor strength is 5/5 of the upper extremities. Cranial nerves II through XII intact. No focal neurological deficits. IMPRESSION: Left trapezial strain and spasm. PLAN: I placed him on tizanidine 4 mg 3 times a day as needed for the spasm. Lidoderm patch. He will apply 2 patches on the affected areas for 12 hours daily. Mobic 15 mg every day for his inflammation. Stop ibuprofen. Follow up with his PCP for further evaluation and treatment. Abelardo Sullivan MD [id number] SSI File#: [id number] END OF DOCUMENT / CHANGE LOG FOLLOWS Last Edited By [employer]. Signed By Abelardo Sullivan MD #Abelardo Menjivar MD #[place] on 06/08/2020 08:11 ET on 06/08/2020 08:11 ET Revision Number - 2 ^^^ Verified/Reviewed by 06/08/20810 [place] PATIENT NAME: SHAHAB JOYA [facility] Dr[facility]ellon MEDICAL REC #: [id number] [place] [address] [facility] STAT[facility] PHYSICIAN documented in this encounter [facility] Evaluation + Plan note Note Date & Type Note Facility Evaluation + Plan note No data available for this section [facility] Evaluation note Note Date & Type Note Facility documented in this encounter [facility] Summary Purpose Family History No Family History Records FoundNo Family History Records FoundNo Family History Records Found Advance Directives No Advanced Directives Records FoundNo Advanced Directives Records FoundNo Advanced Directives Records Found Additional Source Comments Source Comments (unrecognize d section and content) In the event this informatio n is protected by the Federal Confidentiality of Alcohol and Drug Abuse Patient Records regulations: The Federal rules restrict any use of the information to criminally investigate or prosecute any alcohol or drug abuse patient.[facility] the event this information is protected by the Federal Confidentiality of Alcohol and Drug Abuse Patient Records regulations: The Federal rules restrict any use of the information to criminally investigate or prosecute any alcohol or drug abuse patient.[facility] the event this information is protected by the Federal Confidentiality of Alcohol and Drug Abuse Patient Records regulations: The Federal rules restrict any use of the information to criminally investigate or prosecute any alcohol or drug abuse patient.[facility] the event this information is protected by the Federal Confidentiality of Alcohol and Drug Abuse Patient Records regulations: The Federal rules restrict any use of the information to criminally investigate or prosecute any alcohol or drug abuse patient.[facility] the event this information is protected by the Federal Confidentiality of Alcohol and Drug Abuse Patient Records regulations: The Federal rules restrict any use of the information to criminally investigate or prosecute any alcohol or drug abuse patient.[facility] the event this information is protected by the Federal Confidentiality of Alcohol and Drug Abuse Patient Records regulations: The Federal rules restrict any use of the information to criminally investigate or prosecute any alcohol or drug abuse patient.[facility] the event this information is protected by the Federal Confidentiality of Alcohol and Drug Abuse Patient Records regulations: The Federal rules restrict any use of the information to criminally investigate or prosecute any alcohol or drug abuse patient.[facility] the event this information is protected by the Federal Confidentiality of Alcohol and Drug Abuse Patient Records regulations: The Federal rules restrict any use of the information to criminally investigate or prosecute any alcohol or drug abuse patient.[facility] the event this information is protected by the Federal Confidentiality of Alcohol and Drug Abuse Patient Records regulations: The Federal rules restrict any use of the information to criminally investigate or prosecute any alcohol or drug abuse patient.[facility] the event this information is protected by the Federal Confidentiality of Alcohol and Drug Abuse Patient Records regulations: The Federal rules restrict any use of the information to criminally investigate or prosecute any alcohol or drug abuse patient.[facility] the event this information is protected by the Federal Confidentiality of Alcohol and Drug Abuse Patient Records regulations: The Federal rules restrict any use of the information to criminally investigate or prosecute any alcohol or drug abuse patient.[facility] the event this information is protected by the Federal Confidentiality of Alcohol and Drug Abuse Patient Records regulations: The Federal rules restrict any use of the information to criminally investigate or prosecute any alcohol or drug abuse patient.[facility] the event this information is protected by the Federal Confidentiality of Alcohol and Drug Abuse Patient Records regulations: The Federal rules restrict any use of the information to criminally investigate or prosecute any alcohol or drug abuse patient.[facility] the event this information is protected by the Federal Confidentiality of Alcohol and Drug Abuse Patient Records regulations: The Federal rules restrict any use of the information to criminally investigate or prosecute any alcohol or drug abuse patient.[facility] the event this information is protected by the Federal Confidentiality of Alcohol and Drug Abuse Patient Records regulations: The Federal rules restrict any use of the information to criminally investigate or prosecute any alcohol or drug abuse patient.[facility] (unrecognized sect ion and content) No Status Records FoundNo Status Records FoundNo Status Records Found INFORMATION SOURCE (unrecogn ized section and content) DATE CREATED AUTHOR AUTHOR'S ORGANIZ ATION 09/08/2021 [facility] ([place]) DATE CREATED AUTHOR AUTHOR'S ORGANIZ ATION 04/07/2022 [facility] Care Team (unrecognized sect ion and content) Care Team Personnel Name: KERRI HINOJOSA DO Member Role: Primary Care Physician Address: Address: [address] [place] [address] Care Team Related Persons Name: OLGA MONTOYA Name: JAZMINE JOYA Address: Home [address] Name: AMANDA JOYA Address: Home [address] [place], [place] [id number] Name: EARNESTINE JOYA Name: DEYVI JOYA Address: Home [address] [place] [id number] Reason for Visit (unrecogniz ed section and content) Care Teams (unrecognized sec tion and content) FOR RECORDS PERTAINING TO PATIENTS WHO ARE OR HAVE BEEN ENROLLED IN A CHEMICAL DEPENDENCY/SUBSTANCEABUSE PROGRAM, SOME INFORMATION MAY BE OMITTED. This clinical summary was aggregated from multiple sources. Caution should be exercised in using it in the provision of clinical care. This summary normalizes information from multiple sources, and as a consequence, information in this document may materially change the coding, format and clinical context of patient data. In addition, data may be omitted in some cases. CLINICAL DECISIONS SHOULD BE BASED ON THE PRIMARY CLINICAL RECORDS. [facility] [employer] [facility]. provides no warranty or guarantee of the accuracy or completeness of information in this document.
== END 2023-02-27 22:56 | disposition home or self-care (01) ==
LOC: ED 22:51
PROVIDERS: Emergency Provider Emergency Medicine; PCP Family Medicine; Visit Provider Emergency Medicine
DX: H16.8 Other keratitis (principal); W89.0XXA Exposure to welding light (arc), initial encounter; Y92.009 Unspecified place in unspecified non-institutional (private) residence as the place of occurrence of the external cause; F17.210 Nicotine dependence, cigarettes, uncomplicated
CPT/HCPCS: 99283

== ENCOUNTER 2023-04-09 15:48 | Outpatient (RCR) | payer OTHER, SELFPAY | END 2023-04-19 23:59 | LOC: NS 15:48 | PROVIDERS: PCP Family Medicine; Referring Provider Family Medicine; Visit Provider Family Medicine | DX: Z71.3 Dietary counseling and surveillance (principal); E66.01 Morbid (severe) obesity due to excess calories; Z68.42 Body mass index [BMI] 45.0-49.9, adult | CPT/HCPCS: 97802 ==

== ENCOUNTER 2023-05-08 19:30 | Emergency (ER) | payer OTHER, SELFPAY ==
[2023-05-08 19:32] VITALS: BP 148/86; PULSE 74; RESP 18; TEMP 36.2; O2SAT 97; BMI 44.6
--- NOTE | 2023-05-08 22:22 | EX.ED.VIS.EY ---
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 Worse now. States this happened once before when he used his welding helmet at home so he anticipates throwing it away and getting a new one. PFSH PFS Medical History Contact with or exposure to other viral diseases COVID-19 URI (upper respiratory infection) Home Medications dexamethasone 6 mg tablet 6 mg PO DAILY #5 tabs 12/11/22 [Rx Last Taken Unknown] cyclobenzaprine 10 mg tablet 10 mg PO QHS PRN PRN Muscle Spasm #10 TABLETS 01/21/23 [Rx Last Taken Unknown] hydrocodone-acetaminophen 5-325mg 5mg-325mg 1 tab PO Q6H PRN PRN Pain 3 days #10 TABLETS 01/21/23 [Rx Last Taken Unknown] Allergy/AdvReac Type Severity Reaction Status Date / Time cephalexin [From Keflex] Allergy Intermediate sob Verified 05/08/23 19:31 acetaminophen [From Percocet] Allergy Mild Hives Verified 05/08/23 19:31 oxycodone [From Percocet] Allergy Mild Hives Verified 05/08/23 19:31 Surgical History History of colon resection Hx of arthroscopy of knee Hx of tonsillectomy Social History Smoking Status: Former smoker alcohol intake: current alcohol intake frequency: holidays/special occasions only ROS ROS ED Constitutional Constitutional ED: Denies chills or fever(s) Eyes Eyes: Reports as per HPI and eye pain ENT ENT ED: Denies ear pain, rhinorrhea or sore throat Neurologic Neurologic: Denies headache(s), paresthesias or weakness EXAM Physical Exam Const Vital Signs: 05/08/23 19:32 Temperature 97.2 F L Temperature Source Temporal Pulse Rate 74 Respiratory Rate 18 Blood Pressure 148/86 H Blood Pressure Mean 106 Pulse Ox 97 Oxygen Delivery Method Room Air Positive well nourished and well developed General Appearance ED: well developed and NAD HEENT atraumatic; Negative for tenderness Mouth ED: Yes oral and palatal mucosa normal and Yes lips normal Mouth: oral and palatal mucosa normal and lips normal Eyes PERRL and EOMs intact bilaterally Eyes Narrative: Mild bilateral bulbar conjunctival injection no chemosis no discharge, no acute palsy. Mild photophobia. Neuro oriented x3, CN's II-XII intact bilaterally and gait normal Sensorium / Orientation: alert Skin Lesions: no lesions Rashes: no rashes MDM MDM MDM Narrative Medical decision making narrative: Visual acuities were checked prior to placing the anesthetic within the patient's eyes, 20/15 left, 20/20 right, 20/15 both. Pain significantly better with tetracaine. Fluorescein staining until lamp exam shows corneal stippling dye uptake negative Gaye sign anterior chamber is deep and quiet. The left eye is worse. There is minimal dye uptake on the right eye. No ulcerations or foreign body seen embedded on the cornea. He is given a limited supply of tetracaine as well as erythromycin ophthalmic ointment with instructions for use and follow-up with ophthalmology as needed. He is comfortable with the plan. Discharge Plan Triage Chief Complaint: Eye Problem ED Provider: David Reeves Dx/Rx/DC Orders Clinical Impression: UV keratitis Instructions: Ultraviolet Keratitis Prescriptions: No Action dexamethasone 6 mg tablet 6 mg PO DAILY Qty: 5 0RF cyclobenzaprine [cyclobenzaprine] 10 mg tablet 10 mg PO QHS PRN PRN (Reason: Muscle Spasm) Qty: 10 0RF hydrocodone-acetaminophen 5-325 mg tablet 1 tab PO Q6H PRN PRN (Reason: Pain) 3 Days Qty: 10 0RF Primary Care Provider: Lb Mcleod Referrals: Lb Mcleod MD [Primary Care Provider] - Chivo Calzada MD [Med Staff - Active Staff] - 3-5 Days if not improving Activity Restrictions/Additional Instructions: Use antibiotic ointment 3-4 times daily as needed for the next several days until better. If not resolved after 3-5 days follow-up with ophthalmology as above. Disposition Disposition: Home, Self Care
[2023-05-08] MEDS: Fluorescein 1 MG STRIP 1 STRIP EACH EYE (22:50)
[2023-05-08] MEDS: Tetracaine 0.5% Ophthalmic Bottle 3 DRP EACH EYE (22:50)
[2023-05-08] MEDS: Erythromycin Base 1 OPTH.TUBE 1 APPLIC EACH EYE (23:25)
[2023-05-08 23:27] VITALS: BP 138/74; PULSE 73; RESP 16; TEMP 36.9; O2SAT 99
== END 2023-05-08 23:32 | disposition home or self-care (01) ==
PROVIDERS: Emergency Provider Emergency Medicine; PCP Family Medicine; Visit Provider Emergency Medicine
DX: H16.133 Photokeratitis, bilateral (principal); Z87.891 Personal history of nicotine dependence; W89.0XXA Exposure to welding light (arc), initial encounter; Y92.59 Other trade areas as the place of occurrence of the external cause
CPT/HCPCS: 99283